=== PATIENT | female | born 1985 | race African-American/Black ===

== ENCOUNTER 2019-07-20 02:08 | Emergency (ER) | payer SELFPAY ==
--- NOTE | 2019-07-20 03:07 | ER ---
Nurse's Notes [facility] Name: Laly Gray Age: 34 yrs Sex: Female : 1985 Arrival Date: 07/20/2019 Time: 02:12 Bed 20 Private MD: Diagnosis: Acute pharyngitis;Acute laryngitis;Cough Presentation: 07/19 02:30 Chief complaint: Patient states: my throat is hurting, cough and on and off fever rr5 started 3 days ago. I took ibuprofen and throat spray but it did not help. Coronavirus screen: The patient has NOT traveled to a country currently being monitored by the [facility] within the last 14 days. Proceed with normal triage procedures. Ebola Screen: Patient negative for fever greater than or equal to 101.5 degrees Fahrenheit, and additional compatible Ebola Virus Disease symptoms Patient denies exposure to infectious person. Patient denies travel to an Ebola-affected area in the 21 days before illness onset. Initial Sepsis Screen: Does the patient meet any 2 criteria? HR > 90 bpm. No. Patient's initial sepsis screen is negative. Does the patient have a suspected source of infection? Yes: Productive cough/pneumonia. Risk Assessment: Do you want to hurt yourself or someone else? Patient reports no desire to harm self or others. Onset of symptoms was July 16, 2019. 02:30 Method Of Arrival: Ambulatory rr5 02:30 Acuity: LY 3 rr5 Triage Assessment: 02:35 General: Appears in no apparent distress. uncomfortable, Behavior is calm, cooperative, rr5 appropriate for age. 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 - Social history:: Smoking status: Patient reports the use of cigarette tobacco products, 5 sticks per day, Patient/guardian denies using alcohol, street drugs. - Family history:: not pertinent. Screenin:35 Abuse screen: Denies threats or abuse. Denies injuries from another. Nutritional rr5 screening: No deficits noted. Tuberculosis screening: No symptoms or risk factors identified. Fall Risk None identified. Total Scott Fall Scale indicates No Risk (0-24 pts). Assessment: 02:35 General: Appears in no apparent distress. uncomfortable, Behavior is calm, cooperative, rr5 appropriate for age, Reports fever for 2-3 days. 02:35 Pain: Complains of pain in throat Pain radiates to neck Pain currently is 8 out of 10 rr5 on a pain scale. Quality of pain is described as aching, Pain began gradually, Is intermittent. Neuro: Level of Consciousness is awake, alert, obeys commands, Oriented to person, place, time, situation. Cardiovascular: Capillary refill < 3 seconds Patient's skin is warm and dry. Respiratory: Reports cough that is Airway is patent Respiratory effort is even, unlabored, Respiratory pattern is regular, symmetrical, Breath sounds are clear bilaterally. GI: No signs and/or symptoms were reported involving the gastrointestinal system. : No signs and/or symptoms were reported regarding the genitourinary system. EENT: Throat with gag reflex present, mild redness and mild swelling. hoarseness noted.. Derm: Skin is intact, is healthy with good turgor, Skin temperature is warm. Musculoskeletal: Circulation, motion, and sensation intact. Capillary refill < 3 seconds. 03:20 Reassessment: Patient appears in no apparent distress at this time. Patient is alert, rr5 oriented x 3, equal unlabored respirations, skin warm/dry/pink. discharge instruction given and explained without complaints made. Vital Signs: 02:30 BP 155 / 75; Pulse 118; Resp 20; Temp 98.9; Pulse Ox 99% ; Weight 99.79 kg; Height 5 rr5 ft. 2 in. (157.48 cm); Pain 9/10; 03:20 BP 151 / 70; Pulse 105; Resp 19; Temp 98.5; Pulse Ox 99% on R/A; rr5 02:30 Body Mass Index 40.24 (99.79 kg, 157.48 cm) rr5 ED Course: 02:12 Patient arrived in ED. es 02:21 Yohannes Cloud, TABITHA is Primary Nurse. rr5 02:25 Clarence Ni MD is Attending Physician. festus 02:34 Triage completed. rr5 02:34 Arm band placed on right wrist. rr5 02:35 Patient has correct armband on for positive identification. Bed in low position. Call rr5 light in reach. 03:20 No provider procedures requiring assistance completed. Patient did not have IV access rr5 during this emergency room visit. Administered Medications: 03:05 Drug: Augmentin 875 mg Route: PO; rr5 03:25 Follow up: Response: Medication administered at discharge. rr5 03:08 Drug: predniSONE 40 mg Route: PO; rr5 03:25 Follow up: Response: Medication administered at discharge. rr5 Outcome: 03:06 Discharge ordered by . festus 03:25 Discharged to home ambulatory. rr5 03:25 Condition: stable 03:25 Discharge instructions given to patient, Instructed on discharge instructions, follow up and referral plans. medication usage, Demonstrated understanding of instructions, follow-up care, medications, Prescriptions given X 3. 03:28 Patient left the ED. rr5 Signatures: Clarence Ni MD MD cha Salyer, Yohannes Sharma, RN RN rr5
--- NOTE | 2019-07-20 03:07 | EDPHYS ---
Physician Documentation [facility] Name: Laly Gray Age: 34 yrs Sex: Female : 1985 Arrival Date: 07/20/2019 Time: 02:12 Bed 20 Private MD: ROSIE Physician Clarence Ni HPI: 07/19 03:00 This 34 yrs old Black Female presents to ER via Ambulatory with complaints of Sore festus Throat, Fever, Cough. 03:00 The patient presents with sore throat. The patient describes throat pain as burning. festus Onset: The symptoms/episode began/occurred 2 day(s) ago. Severity of symptoms: At their worst the symptoms were mild. Modifying factors: The symptoms are alleviated by. Associated signs and symptoms: The patient has no apparent associated signs or symptoms. The patient has not experienced similar symptoms in the past. 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 - Social history:: Smoking status: Patient reports the use of cigarette tobacco products, 5 sticks per day, Patient/guardian denies using alcohol, street drugs. - Family history:: not pertinent. ROS: 03:00 Constitutional: Negative for fever, chills, and weight loss, Eyes: Negative for injury, festus pain, redness, and discharge, Neck: Negative for injury, pain, and swelling, Cardiovascular: Negative for chest pain, palpitations, and edema, Respiratory: Negative for shortness of breath, cough, wheezing, and pleuritic chest pain, Abdomen/GI: Negative for abdominal pain, nausea, vomiting, diarrhea, and constipation, Back: Negative for injury and pain, : Negative for injury, bleeding, discharge, and swelling, MS/Extremity: Negative for injury and deformity, Skin: Negative for injury, rash, and discoloration, Neuro: Negative for headache, weakness, numbness, tingling, and seizure. 03:00 ENT: Positive for difficulty swallowing, hoarseness. Exam: 03:00 Constitutional: This is a well developed, well nourished patient who is awake, alert, festus and in no acute distress. Head/Face: Normocephalic, atraumatic. Eyes: Pupils equal round and reactive to light, extra-ocular motions intact. Lids and lashes normal. Conjunctiva and sclera are non-icteric and not injected. Cornea within normal limits. Periorbital areas with no swelling, redness, or edema. Neck: Trachea midline, no thyromegaly or masses palpated, and no cervical lymphadenopathy. Supple, full range of motion without nuchal rigidity, or vertebral point tenderness. No Meningismus. Chest/axilla: Normal chest wall appearance and motion. Nontender with no deformity. No lesions are appreciated. Cardiovascular: Regular rate and rhythm with a normal S1 and S2. No gallops, murmurs, or rubs. Normal PMI, no JVD. No pulse deficits. Respiratory: Lungs have equal breath sounds bilaterally, clear to auscultation and percussion. No rales, rhonchi or wheezes noted. No increased work of breathing, no retractions or nasal flaring. Abdomen/GI: Soft, non-tender, with normal bowel sounds. No distension or tympany. No guarding or rebound. No evidence of tenderness throughout. Back: No spinal tenderness. No costovertebral tenderness. Full range of motion. Skin: Warm, dry with normal turgor. Normal color with no rashes, no lesions, and no evidence of cellulitis. MS/ Extremity: Pulses equal, no cyanosis. Neurovascular intact. Full, normal range of motion. Neuro: Awake and alert, GCS 15, oriented to person, place, time, and situation. Cranial nerves II-XII grossly intact. Motor strength 5/5 in all extremities. Sensory grossly intact. Cerebellar exam normal. Normal gait. Psych: Awake, alert, with orientation to person, place and time. Behavior, mood, and affect are within normal limits. 03:00 ENT: Posterior pharynx: Airway: normal, no evidence of obstruction, Tonsils: are normal in appearance, Uvula: normal, midline, non-edematous, no erythema, swelling, that is mild, erythema, that is mild, exudate, is not appreciated, peritonsillar mass, is not appreciated. 03:05 Musculoskeletal/extremity: DVT Exam: No signs of deep vein thrombosis. no pain, no festus swelling, no tenderness, negative Homans' sign noted on exam, no appreciated bluish discoloration, no erythema, no increased warmth. Vital Signs: 02:30 BP 155 / 75; Pulse 118; Resp 20; Temp 98.9; Pulse Ox 99% ; Weight 99.79 kg; Height 5 rr5 ft. 2 in. (157.48 cm); Pain 9/10; 03:20 BP 151 / 70; Pulse 105; Resp 19; Temp 98.5; Pulse Ox 99% on R/A; rr5 02:30 Body Mass Index 40.24 (99.79 kg, 157.48 cm) rr5 MDM: 02:26 Patient medically screened. [facility] 03:05 Data reviewed: vital signs, nurses notes. [facility] Administered Medications: 03:05 Drug: Augmentin 875 mg Route: PO; rr5 03:25 Follow up: Response: Medication administered at discharge. rr5 03:08 Drug: predniSONE 40 mg Route: PO; rr5 03:25 Follow up: Response: Medication administered at discharge. rr5 Disposition: 07/20/19 03:06 Discharged to Home. Impression: Acute pharyngitis, Acute laryngitis, Cough. - Condition is Stable. - Discharge Instructions: Laryngitis, Pharyngitis, Upper Respiratory Infection, Adult, Cool Mist Vaporizer, Pharyngitis, [id number], Cough, Adult, Axsb-pc-Jgic, Cough, Adult, Sore Throat, Ioxw-al-Seor. - Prescriptions for Augmentin 875- 125 mg Oral Tablet - take 1 tablet by ORAL route every 12 hours for 10 days; 20 tablet. Tammie- D 12 Hour 60-120 mg Oral Tablet Sustained Release 12 hr - take 1 tablet by ORAL route every 12 hours As needed; 20 tablet. Medrol (Ryan) 4 mg Oral Tablets, Dose Pack - take 1 tablet by ORAL route as directed - follow package instructions; 1 packet. - Work release form, Medication Reconciliation Form, Thank You Letter, Antibiotic Education, Prescription Opioid Use form. - Follow up: Private Physician; When: 2 - 3 days; Reason: Recheck today's complaints, Continuance of care, Re-evaluation by your physician. - Problem is new. - Symptoms have improved. Signatures: Clarence Ni MD MD cha Roque, Raymond RN RN rr5 Corrections: (The following items were deleted from the chart) 03:28 03:06 07/20/2019 03:06 Discharged to Home. Impression: Acute pharyngitis; Acute rr5 laryngitis; Cough. Condition is Stable. Forms are Medication Reconciliation Form, Thank You Letter, Antibiotic Education, Prescription Opioid Use. Follow up: Private Physician; When: 2 - 3 days; Reason: Recheck today's complaints, Continuance of care, Re-evaluation by your physician. Problem is new. Symptoms have improved. festus
[2019-07-20] MEDS ORDERED: predniSONE 20 MG TAB ONE (03:19)
[2019-07-20] MEDS ORDERED: AMOX/K CLAV 875 MG TAB ONE (03:20)
[2019-07-20 03:33] VITALS: BP 155/75; TEMP 98.9; O2SAT 99
== END 2019-07-20 03:28 | disposition home or self-care (01) ==
LOC: ER 02:08
DX: J02.9 Acute pharyngitis, unspecified (principal); J04.0 Acute laryngitis; R05 Cough; F17.210 Nicotine dependence, cigarettes, uncomplicated
CPT/HCPCS: 99283; J7512

== ENCOUNTER 2020-03-28 12:44 | Emergency (ER) | payer SELFPAY ==
--- OUTSIDE RECORDS SUMMARY | 2020-03-28 12:47 | XMS REPORT | Continuity of Care Document ---
:1985 Author Organization [facility] t Address [address] [place] [address] Care Team Providers Name Role Phone Lazarus Hayward NP Attending Clinician Doctor Unassigned, Name Attending Clinician Unavailable Angella SHAFER S Attending Clinician Problems This patient has no known problems. Allergies, Adverse Reactions, Alerts This patient has no known allergies or adverse reactions. Medications This patient has no known medications. Procedures This patient has no known procedures. Encounters Start End Encounter Admission Attending Care Care Encounter Source Date/Time Date/Time Type Type Clinicians Facility Department ID 2019-07-11 2019-07-11 [email or web address] [id number] 17:09:23 20:25:00 Jeana Reinoso [id number] [place] [id number] [place] [id number] 2019-07-11 2019-07-11 Orders Doctor LEAL [id number] 00:00:00 00:00:00 Only Unassigned, RYAN [id number] [place] [facility] [id number] 2018-12-05 2018-12-05 [facility] [id number] 19:29:22 21:59:00 Tramaine Reinoso [id number] [place] [id number] [place] [id number] Results This patient has no known results.
[2020-03-28 13:36] LABS: Absolute Lymphocytes (CBC) 2.1 K/uL (0.7-4.9); Basophils % 1.4 % (0-1.3); Hematocrit 32.5 % (36.0-45.0); Lymphocytes % 25.4 % (15.3-44.8); MPV 7.8 fL (7.6-11.3); RBC Red Blood Cell Count 4.57 M/uL (3.86-4.86)
[2020-03-28 13:49] LABS: Potassium 3.3 mmol/L (3.5-5.1)
[2020-03-28] MEDS ORDERED: PROMETHAZINE INJ 25 MG/ML AMP ONE (13:51)
[2020-03-28] MEDS ORDERED: DIPHENHYDRAMINE 50 MG/ML VIAL ONE (13:51)
[2020-03-28] MEDS ORDERED: NA CHLORIDE 0.9% 2,000 ML ONE (13:51)
[2020-03-28 13:58] LABS: Urine Bacteria <20 /HPF (<20); Urine Mucus HEAVY /HPF (NONE SEEN); Urine RBC NONE SEEN /HPF (NONE SEEN)
--- NOTE | 2020-03-28 15:46 | EDPHYS ---
Physician Documentation [facility] Name: Laly Gray Age: 35 yrs Sex: Female : 1985 Arrival Date: 03/28/2020 Time: 12:48 Bed 8 Private MD: ED Physician Jose Xie HPI: 03/28 13:31 This 35 yrs old Black Female presents to ER via Ambulatory with complaints of Vomiting, snw Dizziness. 13:31 The patient presents to the emergency department with nausea, that is moderate, that is snw severe, vomiting, 2 times since the onset of symptoms. Onset: The symptoms/episode began/occurred suddenly, 4 day(s) ago, and became persistent. Possible causes: unknown. The symptoms are aggravated by nothing. Severity of symptoms: At their worst the symptoms were moderate severe in the emergency department the symptoms are unchanged. The patient has not experienced similar symptoms in the past. The patient has not recently seen a physician. hx of HTN, takes Lisinopril, has had migraines in the past but not recently. 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 - Social history:: Smoking status: Patient reports the use of cigarette tobacco products, smokes one-half pack cigarettes per day. ROS: 13:31 Constitutional: Negative for fever, chills, and weight loss, Eyes: Negative for injury, snw pain, redness, and discharge, ENT: Negative for injury, pain, and discharge, Neck: Negative for injury, pain, and swelling, Cardiovascular: Negative for chest pain, palpitations, and edema, Respiratory: Negative for shortness of breath, cough, wheezing, and pleuritic chest pain, Back: Negative for injury and pain, : Negative for injury, bleeding, discharge, and swelling, MS/Extremity: Negative for injury and deformity, Skin: Negative for injury, rash, and discoloration. 13:31 Abdomen/GI: Positive for nausea and vomiting, Negative for abdominal pain, diarrhea. 13:31 Neuro: Positive for dizziness. Exam: 13:33 Constitutional: This is a well developed, well nourished patient who is awake, alert, snw and in no acute distress. Head/Face: Normocephalic, atraumatic. Eyes: Pupils equal round and reactive to light, extra-ocular motions intact. Lids and lashes normal. Conjunctiva and sclera are non-icteric and not injected. Cornea within normal limits. Periorbital areas with no swelling, redness, or edema. ENT: Nares patent. No nasal discharge, no septal abnormalities noted. Tympanic membranes are normal and external auditory canals are clear. Oropharynx with no redness, swelling, or masses, exudates, or evidence of obstruction, uvula midline. Mucous membranes moist. Neck: Trachea midline, no thyromegaly or masses palpated, and no cervical lymphadenopathy. Supple, full range of motion without nuchal rigidity, or vertebral point tenderness. No Meningismus. Chest/axilla: Normal chest wall appearance and motion. Nontender with no deformity. No lesions are appreciated. Cardiovascular: Regular rate and rhythm with a normal S1 and S2. No gallops, murmurs, or rubs. Normal PMI, no JVD. No pulse deficits. Respiratory: Lungs have equal breath sounds bilaterally, clear to auscultation and percussion. No rales, rhonchi or wheezes noted. No increased work of breathing, no retractions or nasal flaring. Abdomen/GI: Soft, non-tender, with normal bowel sounds. No distension or tympany. No guarding or rebound. No evidence of tenderness throughout. Back: No spinal tenderness. No costovertebral tenderness. Full range of motion. Skin: Warm, dry with normal turgor. Normal color with no rashes, no lesions, and no evidence of cellulitis. MS/ Extremity: Pulses equal, no cyanosis. Neurovascular intact. Full, normal range of motion. Neuro: Awake and alert, GCS 15, oriented to person, place, time, and situation. Cranial nerves II-XII grossly intact. Motor strength 5/5 in all extremities. Sensory grossly intact. Cerebellar exam normal. Normal gait. Psych: Awake, alert, with orientation to person, place and time. Behavior, mood, and affect are within normal limits. Vital Signs: 13:07 BP 96 / 67; Pulse 95; Resp 16 S; Temp 97.6(TE); Pulse Ox 99% on R/A; Weight 104.33 kg ca1 (R); Height 5 ft. 3 in. (160.02 cm) (R); Pain 6/10; 13:30 BP 122 / 76; Pulse 97; Resp 17; Pulse Ox 100% ; jl7 15:30 BP 111 / 73; Pulse 87; Resp 17; Pulse Ox 100% ; jl7 13:07 Body Mass Index 40.74 (104.33 kg, 160.02 cm) ca1 MDM: 13:27 Patient medically screened. snw 13:33 Data reviewed: vital signs, nurses notes. Data interpreted: Pulse oximetry: on room air snw is 99 %. Counseling: I had a detailed discussion with the patient and/or guardian regarding: the historical points, exam findings, and any diagnostic results supporting the discharge/admit diagnosis. 03/28 13:15 Order name: Basic Metabolic Panel; Complete Time: 15:04 snw 03/28 13:15 Order name: CBC with Diff; Complete Time: 13:38 snw 03/28 13:15 Order name: Urine Culture snw 03/28 13:15 Order name: Urine Microscopic Only; Complete Time: 15:04 snw 03/28 13:48 Order name: Urine Dipstick--Ancillary (enter results) eb 03/28 13:48 Order name: Urine --Ancillary (enter results) eb 03/28 13:15 Order name: IV Saline Lock; Complete Time: 13:31 snw 03/28 13:15 Order name: Labs collected and sent; Complete Time: 13:31 snw 03/28 13:15 Order name: Urine Test (obtain specimen); Complete Time: 13:46 snw 03/28 13:15 Order name: Urine Dipstick-Ancillary (obtain specimen); Complete Time: 13:47 snw Administered Medications: 13:45 Drug: NS 0.9% 1000 ml Route: IV; Rate: 1 bolus; Site: right antecubital; jl7 15:30 Follow up: Response: No adverse reaction; IV Status: Completed infusion; IV Intake: jl7 1000ml 13:45 Drug: Phenergan 25 mg Route: IVP; Site: right antecubital; jl7 15:03 Follow up: Response: No adverse reaction; Marked relief of symptoms jl7 13:45 Drug: NS 0.9% 1000 ml Route: IV; Rate: 125 ml/hr; Site: right antecubital; jl7 15:30 Follow up: Response: No adverse reaction; IV Status: Completed infusion; IV Intake: jl7 250ml 13:50 Drug: Benadryl 12.5 mg Route: IVP; Site: right antecubital; jl7 15:03 Follow up: Response: No adverse reaction; Marked relief of symptoms jl7 Disposition: 16:52 Co-signature as Attending Physician, Jose Xie MD. rn Disposition: 03/28/20 15:45 Discharged to Home. Impression: Headache, Volume depletion, Dizziness and giddiness. - Condition is Stable. - Discharge Instructions: Allergies, Adult, Dehydration, Adult, Migraine Headache, Nausea and Vomiting, Adult, Rehydration, Adult. - Prescriptions for orphenadrine citrate 100 mg Oral Tablet Sustained Release - take 1 tablet by ORAL route 2 times per day As needed; 20 tablet. promethazine 25 mg Oral Tablet - take 1 tablet by ORAL route every 6 hours As needed; 20 tablet. - Work release form, Medication Reconciliation Form, Thank You Letter, Antibiotic Education, Prescription Opioid Use form. - Follow up: Emergency Department; When: As needed; Reason: Worsening of condition. Follow up: Private Physician; When: 2 - 3 days; Reason: Recheck today's complaints, Continuance of care, Re-evaluation by your physician. Signatures: Dispatcher [employer] [facility] Elisabeth Barker, GURU-C DATA INTEGRITY CONSULTANT-Cs[employer] Jose Xie MD MD rn Leal, Jahala, RN RN jl7 Ryann Hoang RN RN ca1 Corrections: (The following items were deleted from the chart) 16:03 15:45 03/28/2020 15:45 Discharged to Home. Impression: Headache; Volume depletion; jl7 Dizziness and giddiness. Condition is Stable. Forms are Medication Reconciliation Form, Thank You Letter, Antibiotic Education, Prescription Opioid Use. Follow up: Emergency Department; When: As needed; Reason: Worsening of condition. Follow up: Private Physician; When: 2 - 3 days; Reason: Recheck today's complaints, Continuance of care, Re-evaluation by your physician. snw
--- NOTE | 2020-03-28 15:46 | ER ---
Nurse's Notes [facility] Name: Laly Gray Age: 35 yrs Sex: Female : 1985 Arrival Date: 03/28/2020 Time: 12:48 Bed 8 Private MD: Diagnosis: Headache;Volume depletion;Dizziness and giddiness Presentation: 03/28 13:07 Chief complaint: Patient states: 3rd day of extreme headache, extreme nausea, dizzy and ca1 lightheaded. Denies fever, cough and congestion. Coronavirus screen: Client denies travel out of the [place] in the last 14 days. headache, nausea, Client presents with at least one sign or symptom that may indicate coronavirus-19. Standard/surgical mask placed on the client. Provider contacted for isolation considerations. The client denies any previous COVID testing. Ebola Screen: Patient negative for fever greater than or equal to 101.5 degrees Fahrenheit, and additional compatible Ebola Virus Disease symptoms Patient denies exposure to infectious person. Patient denies travel to an Ebola-affected area in the 21 days before illness onset. No symptoms or risks identified at this time. Initial Sepsis Screen: Does the patient meet any 2 criteria? No. Patient's initial sepsis screen is negative. Does the patient have a suspected source of infection? No. Patient's initial sepsis screen is negative. Risk Assessment: Do you want to hurt yourself or someone else? Patient reports no desire to harm self or others. Onset of symptoms was March 28, 2020. 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 - Social history:: Smoking status: Patient reports the use of cigarette tobacco products, smokes one-half pack cigarettes per day. Screenin:06 Abuse screen: Denies threats or abuse. Denies injuries from another. Nutritional jl7 screening: No deficits noted. Tuberculosis screening: No symptoms or risk factors identified. Fall Risk IV access (20 points). Total Scott Fall Scale indicates No Risk (0-24 pts). Assessment: 13:30 General: Appears in no apparent distress. uncomfortable, Behavior is calm, cooperative, jl7 appropriate for age. Pain: Complains of pain in HERNANDEZ Pain currently is 6 out of 10 on a pain scale. Neuro: Level of Consciousness is awake, alert, obeys commands, Oriented to person, place, time, situation. Cardiovascular: Patient's skin is warm and dry. Respiratory: Airway is patent Respiratory effort is even, unlabored, Respiratory pattern is regular, symmetrical. GI: Abdomen is non-distended, Reports nausea, Patient currently denies diarrhea. : No signs and/or symptoms were reported regarding the genitourinary system. Derm: Skin is pink, warm \T\ dry. 15:30 Reassessment: Patient appears in no apparent distress at this time. Patient and/or jl7 family updated on plan of care and expected duration. Pain level reassessed. Patient is alert, oriented x 3, equal unlabored respirations, skin warm/dry/pink. Patient states feeling better. Patient states symptoms have improved. Vital Signs: 13:07 BP 96 / 67; Pulse 95; Resp 16 S; Temp 97.6(TE); Pulse Ox 99% on R/A; Weight 104.33 kg ca1 (R); Height 5 ft. 3 in. (160.02 cm) (R); Pain 6/10; 13:30 BP 122 / 76; Pulse 97; Resp 17; Pulse Ox 100% ; jl7 15:30 BP 111 / 73; Pulse 87; Resp 17; Pulse Ox 100% ; jl7 13:07 Body Mass Index 40.74 (104.33 kg, 160.02 cm) ca1 ED Course: 12:48 Patient arrived in ED. mr 13:08 Triage completed. ca1 13:10 Arm band placed on right wrist. ca1 13:13 Elisabeth Barker FNP-C is PHCP. snw 13:13 Jose Xie MD is Attending Physician. snw 13:14 Melania Harman RN is Primary Nurse. jl7 13:30 Initial lab(s) drawn, by me, sent to lab. Urine collected: clean catch specimen, clear. jl7 Inserted saline lock: 20 gauge in right antecubital area, using aseptic technique. Blood collected. 15:06 Patient has correct armband on for positive identification. Bed in low position. Call jl7 light in reach. Side rails up X 1. Pulse ox on. NIBP on. 16:03 No provider procedures requiring assistance completed. IV discontinued, intact, jl7 bleeding controlled, No redness/swelling at site. Pressure dressing applied. Administered Medications: 13:45 Drug: NS 0.9% 1000 ml Route: IV; Rate: 1 bolus; Site: right antecubital; jl7 15:30 Follow up: Response: No adverse reaction; IV Status: Completed infusion; IV Intake: jl7 1000ml 13:45 Drug: Phenergan 25 mg Route: IVP; Site: right antecubital; jl7 15:03 Follow up: Response: No adverse reaction; Marked relief of symptoms jl7 13:45 Drug: NS 0.9% 1000 ml Route: IV; Rate: 125 ml/hr; Site: right antecubital; jl7 15:30 Follow up: Response: No adverse reaction; IV Status: Completed infusion; IV Intake: jl7 250ml 13:50 Drug: Benadryl 12.5 mg Route: IVP; Site: right antecubital; jl7 15:03 Follow up: Response: No adverse reaction; Marked relief of symptoms jl7 Intake: 15:30 IV: 1000ml; Total: 1000ml. jl7 15:30 IV: 250ml; Total: 1250ml. jl7 Outcome: 15:45 Discharge ordered by MD. murray 16:03 Discharged to home via wheelchair, with significant other. jl7 16:03 Condition: stable 16:03 Discharge instructions given to patient, significant other, Instructed on discharge instructions, follow up and referral plans. medication usage, Demonstrated understanding of instructions, follow-up care, medications, Prescriptions given X 2. 16:03 Patient left the ED. jl7 Signatures: Elisabeth Barker, NEETU PATELP-Alexsander MontesMervat mr HarmanMelania RN RN jl7 Ryann Hoang RN RN ca1 Corrections: (The following items were deleted from the chart) 16:01 15:03 Response: No adverse reaction; IV Status: Completed infusion; IV Intake: 1000ml jl7 jl7
[2020-03-28 16:17] LABS: Urine Blood NEGATIVE (NEG); Urine Glucose NEGATIVE (NEG); Urine Protein 1+ (NEG); Urine Specific Gravity 1.025 (1.005-1.030)
[2020-03-28 19:42] VITALS: TEMP 97.6
[2020-03-28 19:44] VITALS: O2SAT 100
[2020-03-28 19:46] VITALS: BP 111/73
== END 2020-03-28 16:03 | disposition home or self-care (01) ==
LOC: ER 12:44
DX: E86.9 Volume depletion, unspecified (principal); R51.9 Headache, unspecified; I10 Essential (primary) hypertension; E11.9 Type 2 diabetes mellitus without complications; F17.210 Nicotine dependence, cigarettes, uncomplicated
CPT/HCPCS: 36415; 80048; 81003; 81015; 81025; 85025; 87086; 87088; 96361; 96374; 96375; 99284; J1200; J2550; J7030

== ENCOUNTER 2021-04-26 16:18 | Emergency (ER) | payer SELFPAY ==
--- OUTSIDE RECORDS SUMMARY | 2021-04-26 16:21 | XMS REPORT | Continuity of Care Document ---
:1985 Author Organization [facility] t Address [address] [place] [address] Care Team Providers Name Role Phone PCP, DOES NOT HAVE A Primary Care Physician Unavailable Akira Quintana DO Attending Clinician Vero MEI, S Attending Clinician Tania LU, M Attending Clinician Unavailable Yesy ANDRADE, G Attending Clinician Lazarus AVENDAÑO Attending Clinician Unavailable Doctor Unassigned, Name Attending Clinician Unavailable Dayan GOLD Attending Clinician Unavailable Angella SHAFER S Attending Clinician Lazarus AVENDAÑO Admitting Clinician Unavailable Payers Payer Name Policy Type Policy Number Effective Date Expiration Date S ource Problems Condition Condition Condition Status Onset Resolution Last Treating Co mments Source Name Details Category Date Date Treatment Clinician Date Obesity Obesity Disease Active 2015-05 Univers (BMI (BMI 1-27 ity of 30-39.9) 30-39.9) 00:00: [address] Lower Lower Disease Active Univers abdominal abdominal 3-13 ity of pain pain 00:00: [address] Contracept Contracept Disease Active U nivers [place] 2-16 [place]y [place] management [place] Excessive Excessive Disease Active Uni vers or or 2-16 ity of frequent frequent 00:00: [place] menstruati menstruati 00 Me dical on on Branch Contracept Contracept Disease Active U yordan [place] 2-16 ity of management management [place] Well woman Well woman Disease Active Overview : Univers exam exam 1-19 ICD10 ity of 00:00: Diagnosis [place] 00 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 History of History of Disease Active U yordan tubal tubal -19 ity of ligation ligation 00:00: [place] 00 Medical Branch Screening Screening Disease Active Overview: Univers for STD for STD - ICD10 ity of (sexually (sexually 00:00: Diagnosis [place] transmitte transmitte 00 Term Me dical d disease) d disease) 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 Asthma Asthma Disease Active Overview: Univer s 1-19 ICD10 ity of 00:00: Diagnosis [place] 00 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 Morbid Morbid Disease Active Univers obesity obesity -19 ity of 00:00: [place] 00 [facility] Branch Tobacco Tobacco Disease Active 2012-05 Univers use use 1-22 ity of disorder disorder 00:00: [place] 00 [facility] Type 2 Type 2 Disease Active 2012-05 Overview: [facility] s diabetes diabetes 1-21 ICD10 ity of mellitus mellitus 00:00: Diagnosis [place] without without 00 Term Medical complicati complicati Lobbyist Branch ons ons Utility Allergies, Adverse Reactions, Alerts Allergy Allergy Status Severity Reaction(s) Onset Inactive Treating Comm ents Source Name Type Date Date Clinician NO KNOWN Drug Active Univers ALLERGIE Class ity of S [facility] Social History Social Habit Start Date Stop Date Quantity Comments Source History of Cigarette Smoker Universi ty of tobacco use [facility] Exposure to Not sure University of SARS-CoV-2 [place] [facility] (event) Branch Alcohol intake 2020-04-09 2020-04-09 Current University of 00:00:00 00:00:00 non-drinker of [facility] alcohol (finding) Branch Tobacco use and 2020-04-09 2020-04-09 Never used Universit y of exposure 00:00:00 00:00:00 [facility] Tobacco Comment 2014-05-16 2014-05-16 smokes 5 Universit y of 00:00:00 00:00:00 cigarettes a day [facility] Sex Assigned At [birth year] Universit y of 00:00:00 00:00:00 [facility] Smoking Status Start Date Stop Date Source Current every day smoker 2020-04-09 00:00:00 Uni versity of [facility] Medications Ordered Filled Start Stop Current Ordering Indication Dosage Frequency Signature Comments Components Source Medication Medication Date Date Medication? Clinician (SIG) Name Name ondansetron 2019-05- No 4mg 4 mg, Univ ers (ZOFRAN-ODT 2-10 12-10 Oral, ity of ) 08:45: 07:40 ONCE, 1 [place] disintegrat 00 :00 dose, Michelle Med ical ing tablet 04/09/20 Branc h 4 mg at 0245, Routine ondansetron 2019-05 Yes [id number] 4mg Take 1 Univers (ZOFRAN 2-10 tablet by ity of ODT) 4 mg 00:00: mouth [place] disintegrat 00 every 8 Medic al ing tablet (eight) Branch hours as needed for Nausea and Vomiting (N/V). ondansetron 2019-05 Yes [id number] 4mg Take 1 Univers (ZOFRAN 2-10 tablet by ity of ODT) 4 mg 00:00: mouth [place] disintegrat 00 every 8 Medic al ing tablet (eight) Branch hours as needed for Nausea and Vomiting (N/V). ondansetron 2019-05 Yes [id number] 4mg Take 1 Univers (ZOFRAN 2-10 tablet by ity of ODT) 4 mg 00:00: mouth [place] disintegrat 00 every 8 Medic al ing tablet (eight) Branch hours as needed for Nausea and Vomiting (N/V). dexamethaso 2020- No [id number] 10mg 10 mg, Univers ne 07-10 Intramuscu ity of (DECADRON 23:45: 00:09 lar, ONCE, [place] PHOSPHATE) 00 :00 1 dose, Medica l injection Michelle Branch 10 mg 07/11/19 at 1845, Routine ipratropium 2020- No [id number] 3mL 3 mL, Univers -albuterol 07-10 Inhalation it y of (DUONEB) 23:45: 22:39 , ONCE, 1 [place] 0.5 mg-3 00 :00 dose, Michelle Medica l mg(2.5 mg 07/11/19 at Bran ch base)/3 mL 1845, nebulizer Routine solution 3 mL albuterol Yes [id number] 2{puff} Inhale 2 Univers 90 3-12 Puffs ity of mcg/actuati 00:00: every 4 [place] on inhaler 00 (four) Medical hours as Branch needed for Wheezing or Shortness of Breath. albuterol Yes [id number] 2{puff} Inhale 2 Univers 90 3-12 Puffs ity of mcg/actuati 00:00: every 4 [place] on inhaler 00 (four) Medical hours as Branch needed for Wheezing or Shortness of Breath. albuterol Yes [id number] 2{puff} Inhale 2 Univers 90 3-12 Puffs ity of mcg/actuati 00:00: every 4 [place] as on inhaler 00 (four) Medical hours as Branch needed for Wheezing or Shortness of Breath. albuterol Yes [id number] 2{puff} Inhale 2 Univers 90 3-12 Puffs ity of mcg/actuati 00:00: every 4 [place] on inhaler 00 (four) Medical hours as Branch needed for Wheezing or Shortness of Breath. predniSONE 2020- No [id number] 40mg Take 2 Univers 20 mg 07-10-18 tablets by ity of tablet 00:00: 04:59 mouth [place] 00 :00 every Medical morning Branch for 5 days. benzonatate 2020- No [id number] 200mg Take 2 Univers 100 mg 07-10-18 capsules ity of capsule 00:00: 04:59 by mouth 3 [place] 00 :00 (three) Medical times Branch daily as needed for Cough for up to 5 days. phenylephri 2020- No [id number] 5mL Take 5 mL Univers ne-prometha 07-1012 by mouth 4 i ty of zine-codein 00:00: 00:00 (four) [place] e 00 :00 times Medical (PROMETHAZI daily as Bran ch NE needed for VC-CODEINE) Cough. 6.25-5-10 mg/5 mL syrup NaCl 0.9% Yes 1000mL at 999 Univ ers (NS) IV 8-08 mL/hr, ity of infusion 01:45: Intravenou [place] 1,000 mL 00 s, Medical CONTINUOUS Branch , Starting 12/05/18 at 2044, Until Discontinu ed, Routine ondansetron 2019- No 4mg 4 mg, Slow Univers (ZOFRAN 12-06 IV Push, ity of (PF)) 01:45: 01:00 ONCE, 1 [place] injection 4 00 :00 dose, Mon Med ical mg 12/05/18 at Branch 2044, CRISTOBAL ketorolac 2019- No 30mg 30 mg, Unive rs (TORADOL) 12-06 Slow IV ity of injection 01:45: 01:00 Push, [place] 30 mg 00 :00 ONCE, 1 Medical dose, Wed Branch 12/05/18 at 2044, Routine
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 Medical Branch metFORMIN Yes [id number] 500mg Take 1 Univers 500 mg 8-07 tablet by ity of tablet 00:00: mouth 2 [place] 00 (two) Medical times Branch daily. lisinopril 2018- Yes [id number] 20mg Take 1 Univers 20 mg 8-07 tablet by ity of tablet 00:00: mouth [place] 00 daily. Medical Branch metFORMIN Yes [id number] 500mg Take 1 Univers 500 mg 8-07 tablet by ity of tablet 00:00: mouth 2 [place] 00 (two) Medical times Branch daily. lisinopril 2018- Yes [id number] 20mg Take 1 Univers 20 mg 8-07 tablet by ity of tablet 00:00: mouth [place] 00 daily. Medical Branch metFORMIN Yes [id number] 500mg Take 1 Univers 500 mg 8-07 tablet by ity of tablet 00:00: mouth 2 [place] 00 (two) Medical times Branch daily. ondansetron 2018- Yes [id number] 8mg Take 1 Univers 8 mg tablet 8-07 tablet by ity of 00:00: mouth [place] 00 every 8 Medical (eight) Branch hours as needed for Nausea and Vomiting (N/V). lisinopril 2018- Yes [id number] 20mg Take 1 Univers 20 mg 8-07 tablet by ity of tablet 00:00: mouth [place] 00 daily. Medical Branch metFORMIN 2018- Yes [id number] 500mg Take 1 Univers 500 mg 8-07 tablet by ity of tablet 00:00: mouth 2 [place] 00 (two) Medical times Branch daily. lisinopril 2018- Yes [id number] 20mg Take 1 Univers 20 mg 8-07 tablet by ity of tablet 00:00: mouth [place] 00 daily. Medical Branch metFORMIN Yes [id number] 500mg Take 1 Univers 500 mg 8-07 tablet by ity of tablet 00:00: mouth 2 [place] 00 (two) Medical times Branch daily. lisinopril 2018- Yes [id number] 20mg Take 1 Univers 20 mg 8-07 tablet by ity of tablet 00:00: mouth [place] 00 daily. Medical Branch metFORMIN Yes [id number] 500mg Take 1 Univers 500 mg 8-07 tablet by ity of tablet 00:00: mouth 2 [place] 00 (two) Medical times Branch daily. traMADOL 2016-05 2019- No 50mg Take 1 Univer s (ULTRAM) 50 1-19 08-07 tablet by it y of mg tablet 00:00: 00:00 mouth [place] 00 :00 every 6 Medical (six) Branch hours as needed for Pain (scale 4-6). sulindac 2015-05 2019- No 200mg Take 1 Unive rs (CLINORIL) 0-20 08-07 tablet by ity of 200 mg 00:00: 00:00 mouth 2 [place] tablet 00 :00 (two) Medical times Branch daily. metFORMIN 2019- No [id number] 500mg Take 1 Tab Univers (GLUCOPHAGE 3-22 08-07 by mouth 2 i ty of ) 500 mg 00:00: 00:00 (two) [place] tablet 00 :00 times Medical daily with Branch meals. Immunizations Ordered Filled Immunization Date Status Comments [facility] e Immunization Name Name Influenza Virus 2019-03-04 Completed Universit y of Vaccine Quad .5 mL 00:00:00 [place] [facility] IM 6+ MO Branch Influenza Virus 2019-03-04 Completed Universit y of Vaccine [place] .5 mL 00:00:00 [place] [facility] IM 6+ MO Branch Influenza Virus 2019-03-04 Completed Universit y of Vaccine [place] .5 mL 00:00:00 [place] [facility] IM 6+ MO Branch Influenza Virus 2019-03-04 Completed Universit y of Vaccine [place] .5 mL 00:00:00 [place] [facility] IM 6+ MO Branch Influenza Virus 2019-03-04 Completed Universit y of Vaccine [place] .5 mL 00:00:00 [place] [facility] IM 6+ MO Branch Td 2011-11-30 Completed University of 00:00:00 [place] [facility] Td 2011-11-30 Completed University of 00:00:00 [place] [facility] Td 2011-11-30 Completed University of 00:00:00 [place] [facility] Td 2011-11-30 Completed University of 00:00:00 [place] [facility] Td 2011-11-30 Completed University of 00:00:00 [facility] [place] [facility] Branch Td 2011-11-30 Completed University of 00:00:00 [facility] Vital Signs Vital Name Observation Time Observation Value Comments Source Systolic blood 2020-04-09 08:00:00 133 mm[Hg] Univer sity of pressure [facility] Diastolic blood 2020-04-09 08:00:00 90 mm[Hg] Unive rsity of [facility] Heart rate 2020-04-09 08:00:00 87 /min [facility] Respiratory rate 2020-04-09 08:00:00 14 /min [facility] Oxygen saturation in 2020-04-09 08:00:00 99 /min [facility] Arterial blood by [facility] Pulse oximetry [place] Body temperature 2020-04-09 07:19:00 37.28 Neena [facility] Body height 2020-04-09 07:19:00 160 cm [facility] Body weight 2020-04-09 07:19:00 101.152 kg [facility] BMI 2020-04-09 07:19:00 39.50 kg/m2 Universi ty [facility] Systolic blood 2020-04-09 08:00:00 133 mm[Hg] Univer sity of pressure [facility] Diastolic blood 2020-04-09 08:00:00 90 mm[Hg] Unive rsity of pressure [facility] Heart rate 2020-04-09 08:00:00 87 /min Universi ty [facility] Respiratory rate 2020-04-09 08:00:00 14 /min Univ ersity of [place] [facility] Oxygen saturation in 2020-04-09 08:00:00 99 /min University of Arterial blood by [place] [facility] [place] Pulse oximetry Branch Body temperature 2020-04-09 07:19:00 37.28 Neena Univ ersity of [place] [facility] Body height 2020-04-09 07:19:00 160 cm Universi ty of [place] [facility] Body weight 2020-04-09 07:19:00 101.152 kg Universi ty of [place] [facility] BMI 2020-04-09 07:19:00 39.50 kg/m2 Universi ty of [place] [facility] Respiratory rate 2019-07-11 22:47:00 16 /min Univ ersity of [place] [facility] Oxygen saturation in 2019-07-11 22:47:00 99 /min University of Arterial blood by [facility] [place] [facility] marichuy Pulse oximetry Branch Systolic blood 2019-07-11 20:27:00 151 mm[Hg] Univer sity of pressure [place] [facility] Diastolic blood 2019-07-11 20:27:00 90 mm[Hg] Unive rsity of pressure [place] [facility] Heart rate 2019-07-11 20:27:00 89 /min Universi ty of [place] [facility] Body temperature 2019-07-11 20:27:00 37.11 Neena Univ ersity of [place] [facility] Body height 2019-07-11 20:27:00 160 cm Universi ty of [place] [facility] Body weight 2019-07-11 20:27:00 104.327 kg Universi ty of [place] [facility] BMI 2019-07-11 20:27:00 40.74 kg/m2 Universi ty of [place] [facility] Respiratory rate 2019-07-11 22:47:00 16 /min Univ ersity of [place] [facility] Oxygen saturation in 2019-07-11 22:47:00 99 /min University of Arterial blood by [facility] [place] [facility] marichuy Pulse oximetry Branch Systolic blood 2019-07-11 20:27:00 151 mm[Hg] Univer sity of pressure [place] [facility] Diastolic blood 2019-07-11 20:27:00 90 mm[Hg] Unive rsity of pressure [place] [facility] Heart rate 2019-07-11 20:27:00 89 /min Universi ty of [place] [facility] Body temperature 2019-07-11 20:27:00 37.11 Neena Univ ersity of [place] [facility] Body height 2019-07-11 20:27:00 160 cm Universi ty of [place] [facility] Body weight 2019-07-11 20:27:00 104.327 kg Universi ty of [place] [facility] BMI 2019-07-11 20:27:00 40.74 kg/m2 Universi ty of [place] [facility] Systolic blood 2018-12-06 02:00:00 150 mm[Hg] Univer sity of pressure [place] [facility] Diastolic blood 2018-12-06 02:00:00 98 mm[Hg] Unive rsity of pressure [place] [facility] Heart rate 2018-12-06 02:00:00 74 /min Universi ty of [place] [facility] Respiratory rate 2018-12-06 02:00:00 10 /min Univ ersity of [place] [facility] Oxygen saturation in 2018-12-06 02:00:00 100 /min University of Arterial blood by [facility] Pulse oximetry Branch Body temperature 2018-12-06 00:31:00 36.56 Neena Univ ersity of [place] [facility] Body height 2018-12-06 00:31:00 157.5 cm Universi ty of [place] [facility] Body weight 2018-12-06 00:31:00 103.42 kg Universi ty of [place] [facility] BMI 2018-12-06 00:31:00 41.70 kg/m2 Universi ty of [place] [facility] Systolic blood 2018-12-06 02:00:00 150 mm[Hg] Univer sity of pressure [place] [facility] Diastolic blood 2018-12-06 02:00:00 98 mm[Hg] Unive rsity of pressure [place] [facility] Heart rate 2018-12-06 02:00:00 74 /min Universi ty of [place] [facility] Respiratory rate 2018-12-06 02:00:00 10 /min Univ ersity of [place] [facility] Oxygen saturation in 2018-12-06 02:00:00 100 /min University of Arterial blood by [facility] [place] [facility] marichuy Pulse oximetry Branch Body temperature 2018-12-06 00:31:[address] [facility] ersity of [place] [facility] Body height 2018-12-06 00:31:00 157.5 cm Universi ty of [place] [facility] Body weight 2018-12-06 00:31:00 103.42 kg Universi ty of [place] [facility] BMI 2018-12-06 00:31:00 41.70 kg/m2 Universi ty of [place] [facility] Procedures Procedure Date / Time Performing Clinician Source Performed RAPID STREP SCREEN FOR 2020-04-09 07:39:00 Shantel Pham [facility] GROUP A Medical Branch NOTICE OF PRIVACY 2020-04-09 07:12:32 [facility]assigned, No [facility] Branch CONSENT/REFUSAL FOR 2020-04-09 07:12:07 Doctor Unassigned, No Un iversity of [place] DIAGNOSIS AND TREATMENT Name [facility] XR CHEST 1 VW 2019-07-11 23:18:39 Bre Avendaño [facility] RAPID STREP SCREEN FOR 2019-07-11 20:33:00 James Dunaway [facility] ADC,CLC OR LCC ONLY - 2019-07-11 20:33:00 James Dunaway [facility] INFLUENZA A & B DIRECT Medical B ranch ANTIGEN NOTICE OF PRIVACY 2019-07-11 20:11:46 [facility], No [facility] CONSENT/REFUSAL FOR 2019-07-11 20:11:30 Doctor Unassigned, No Un iversity [facility] DIAGNOSIS AND TREATMENT Name [facility] COMP. METABOLIC PANEL 2018-12-06 01:27:00 Jonathon Perales [facility] ([id number]) [facility] CBC WITH DIFFERENTIAL 2018-12-06 01:27:00 Jonathon Perales [facility] URINALYSIS 2018-12-06 01:25:00 Jonathon Perales [facility] ADC / LCC - DRUG SCREEN 2018-12-06 01:25:00 [facility] 2018-12-06 00:37:00 Jonathon Perales [facility] Encounters Start End Encounter Admission Attending Care Care Encounter Source Date/Time Date/Time Type Type Clinicians Facility Department ID 2021-02-27 Emergency [facility] [id number] Univers 10:22:05 [facility] 2020-07-20 2020-07-20 Patient Mariano [facility] [id number] Univers 00:00:00 00:00:00 Outreach [place] PRIMARY [id number] i ty of [facility] 4.2.7.2.686 [place] [facility] [id number] [facility] [address] [place] 2020-04-09 2020-04-09 Emergency [facility] [id number] 01:24:00 02:46:00 Shantel Hanley [place] 350.1.13.10 [place] 4.2.7.2.686 [place] [id number] 2020-04-09 2020-04-09 [facility] [id number] [facility] 01:24:00 02:46:00 Shantel Hanley [place] 350.1.13.10 i ty of [place] 4.2.7.2.686 [facility] s [place] [id number] [address] 2020-04-09 2020-04-09 Telephone Tania Linda Mdaay MEL [id number] 00:00:00 00:00:[id number] [facility] 4.2.7.2.686 [id number] [facility] 2020-04-09 2020-04-09 Telephone Linda Marin MEL [id number] [facility] 00:00:00 00:00:[id number] [facility] 4.2.7.2.686 [place] [id number] [address] 2019-07-11 2019-07-11 Emergency [facility] [id number] [facility] 17:09:23 20:25:00 Bre iQu [place] 350.1.13.10 [place] 4.2.7.2.686 [place] [id number] [facility] 2019-07-11 2019-07-11 Emergency X [facility] ERT [id number] Univers 17:09:23 20:25:00 BRE ity of [facility] 2019-07-11 2019-07-11 Emergency [facility] [id number] [facility] 17:09:23 20:25:00 Bre Qiu [place] 350.1.13.10 ity of [place] 4.2.7.2.686 [place] [id number] [address] 2019-07-11 2019-07-11 Orders Doctor MEL [id number] 00:00:00 00:00:00 Only Unassigned, RYAN 350.1.13.[address] [place] [facility] 4.2.7.2.686 [id number] 2019-07-11 2019-07-11 Orders Doctor MLE [id number] Univers 00:00:00 00:00:00 Only Unassigned, RYAN 350.1.13.[address] [place] [facility] 4.2.7.2.686 [facility] [id number] [address] 2019-06-03 2019-06-03 Outpatient MARIELA KERR [facility] [id number] Univers 16:00:00 16:00:00 [facility] 2018-12-05 2018-12-05 Emergency [facility] [id number] 19:29:22 21:59:00 Jonathon Reinoso 350.1.13.[address] [place] [address] [place] [address] [id number] [facility] 2018-12-05 2018-12-05 [facility] [id number] [facility] 19:29:22 21:59:00 Jonathon Reinoso 350.1.13.10 ity [facility] 4.2.7.[address] [place] [id number] Results Test Description Test Time Test Comments Results Result Comments Source RAPID STREP SCREEN FOR GROUP A 2020-04-09 08:06:00 Test Item Value Reference Range Interpretation Comme nts Streptococcus pyogenes (group A) antigen (test code = 66761- 2) Negative Negative Lab Interpretation (test code = 63745-5) Normal [facility] [id number] 23:30:00Findings and Impression: ?Clear lungs. No pleural effusion or pneumothorax.Heart size is normal. No acute osseous abnormality. PORTABLE CHEST RADIOGRAPH History: cough Comparison: None available. TECHNIQUE: AP view of the chest. [facility], Radiant Results Inft - 07/11/2019 6:31 PM CDTPORTABLE CHESTRADIOGRAPHHistory: cough Comparison: None available.TECHNIQUE: AP view of the chest.IMPRESSIONFindings and Impression: Clear lungs. No pleural effusion or pneumothorax.Heart size is normal. No acute osseous abnormality.[facility] ONLY - INFLUENZA A & B DIRECT ANTIGEN 2019-07-11 21:02:00 Test Item Value Reference Range Interpretation Comments Influenza A (test code = 14763-0) Negative Negative Influenza B (test code = 08456-3) Negative Negative Lab Interpretation (test code = Normal 12605-1) [facility] STREP SCREEN FOR GROUP [id number] 20:56:00 Test Item Value Reference Range Interpretation Comments Streptococcus pyogenes (group A) Negative Negative antigen (test code = 49310-9) Lab Interpretation (test code = Normal 61040-7) [facility]2019-[facility]-08 02:06:00 Test Item Value Reference Range Interpretation Comments APPEARANCE (test code = Clear Clear 0360296826) COLOR (test code = Yellow Yellow 0381322753) PH (test code = 4.8-8.0 5434571294) SP GRAVITY (test code = 1.003-1.030 5337235109) GLU U QUAL (test code = Negative Negative 9392426498) BLOOD (test code = Negative Negative 6464154380) KETONES (test code = 40 mg/dL Negative A 0802169489) PROTEIN (test code = Trace Negative A 2887-8) UROBILIN (test code = 0.2 mg/dL See_Comment [Auto mated message] [id number]) The system [employer] generated this result transmit moses reference range : 0-1.0 mg/dL. Th e reference range was not used to interpret this result as normal/abnormal . BILIRUBIN (test code = Negative Negative 2933807369) NITRITE (test code = Negative Negative 6490476785) LEUK JOSE (test code = Negative Negative 2275895452) RBC/HPF (test code = See_Comment [Autom ated message] 0951426382) The system [employer] generated this result transmit moses reference range : 0 - 3 HPF. The refe rence range was not u sed to interpret th is result as normal/abnormal . WBC/HPF (test code = See_Comment [Autom ated message] 5933347308) The system [employer] generated this result transmit moses reference range : 0 - 5 HPF. The refe rence range was not u sed to interpret th is result as normal/abnormal . BACTERIA (test code = Moderate Negative A 8686055774) AMORPHOUS (test code = >10 mg/dL HPF 6541712286) SQ EPITH (test code = HPF 4640419744) Lab Interpretation (test Abnormal code = 81760-9) [facility] / [facility] - DRUG SCREEN [id number] 02:03:00 Test Item Value Reference Range Interpretation Comments BENZO U (test code = Negative Negative [id number]) MARNI U (test code = Negative Negative 8984289146) AMPHET (test code = Negative Negative 8087491382) THC (test code = Presumptive Negative A Confirmatio n of [id number]) Positive Presumptive Positive THC result requires physician order . METHADONE (test code Negative Negative = 6340802328) Meth U (test code = Negative Negative 7565080933) OPIATES (test code = Presumptive Negative A 0525283821) Positive Cocaine Metabolite Presumptive Negative A (test code = Positive 7413795742) PROPOXY (test code = Negative Negative 7768335720) Tric U (test code = Negative Negative 4073050842) PCP (test code = Negative Negative 5544212376) OXYCOD (test code = Negative Negative 3037724427) MILTON (test code = Urine Drug Cutoff MILTON) RangesBenzodiazep juanjose: ? ? 150 ng/mLBarbiturates : ?200 ng/mLAmphetamine: ? 500 ng/mLCannabinoids : ?50?ng/mLMethadon e: ? 200 ng/mLMethamphetam ine:? 500 ng/mL Opiates: ? 100 ng/mL or 2000 ng/mLCocaine: ? 150 ng/mLPropoxyphene :?300 ng/mLTricyclics:? 300 ng/mLOxycodone:? 100 ng/mLPCP:? 25?ng/mLThe results are to be used only for medical (i.e., treatment) purposes. Unconfirmed screening results must not be used for non-medical purposes (e.g., employment testing, legal testing). Lab Interpretation Abnormal (test code = 71650-7) [facility]. METABOLIC PANEL (68006)2018-12-06 01:54:00 Test Item Value Reference Range Interpretation Comments NA (test code = 141 mmol/L 135-145 7519938939) K (test code = 3.5 mmol/L 3.5-5 2046552480) CL (test code = 108 mmol/L 98-108 6728426523) CO2 TOTAL (test code = 26 mmol/L 23-31 4727698804) AGAP (test code = 2-16 5108581442) BUN (test code = 11 mg/dL 7-23 9126262621) GLUCOSE (test code = 117 mg/dL 70-110 H 7119744610) CREATININE (test code = 0.70 mg/dL 0.5-1.04 4111578019) TOTAL BILI (test code = 0.2 mg/dL 0.1-1.1 4684514778) CALCIUM (test code = 8.3 mg/dL 8.6-10.6 L 2435122037) T PROTEIN (test code = 7.2 g/dL 6.3-8.2 9807865912) ALBUMIN (test code = 3.8 g/dL 3.5-5 1318097551) ALK PHOS (test code = 86 U/L 34-122 5413988982) ALT(SGPT) (test code = 19 U/L 9-51 8998260355) AST(SGOT) (test code = 16 U/L 13-40 7880665131) eGFR Calculation mL/min/1.73m2 (Non-) (test code = 0149696018) eGFR Calculation mL/min/1.73m2 () (test code = 5549696712) MILTON (test code = MILTON) Association of Glomerular Filtration Rate (GFR) and Staging of Kidney Disease*+ + + +| GFR (mL/min/1.73 m2)?| With Kidney Damage?|?Without Kidney Damage+ --------+ --------+ +|?>90?|?S tage one?|? Normal?+ ---------+ ---------+ +|?60-89? |?Stage two?|? Decreased GFR? + --+ --+ ------+|?30-59?|?Stage three?|? Stage three? + --+ --+ ------+|?15-29?|?Stage four?? |? Stage four?+ -------+ -------+ +|?<15 (or dialysis)?|?Stage five? |? Stage five?+ -------+ -------+ +*Each stage assumes the associated GFR level has been in effect for at least three months.?Stages 1 to 5, with or without kidney disease, indicate chronic kidney disease.Notes: Determination of stages one and two (with eGFR >59mL/min/1.73 m2) requires estimation of kidney damage for at least three months as defined by structural or functional abnormalities of the kidney, manifested by either:Pathological abnormalities or Markers of kidney damage (including abnormalities in the composition of the blood or urine or abnormalities in imaging tests). Lab Interpretation Abnormal (test code = 52426-7) [facility] WITH [id number] 01:42:00 Test Item Value Reference Range Interpretation Comments WBC (test code = See_Comment [Automated 3563-2) message] The sy stem which generated this result transmitted reference range : 4.30 - 11.10 10*3/?L. The reference range was not used to interpret this result as normal/abnormal . RBC (test code = See_Comment [Automated 319-8) message] The sy stem which generated this result transmitted reference range : 3.93 - 5.25 10*6/?L. The reference range was not used to interpret this result as normal/abnormal . HGB (test code = 10.7 g/dL 11.6-15 L 718-7) HCT (test code = 34.1 % 35.7-45.2 L 4544-3) MCV (test code = 80.4 fL 80.6-95.5 L 787-2) MCH (test code = 25.2 pg 25.9-32.8 L 785-6) MCHC (test code = 31.4 g/dL 31.6-35.1 L 786-4) RDW-SD (test code = 46.9 fL 39-49.9 95263-3) RDW-CV (test code = 16.2 % 12-15.5 H 788-0) PLT (test code = See_Comment [Automated 907-3) message] The sy stem which generated this result transmitted reference range : 166 - 358 10*3/ ?L. The reference r giovanny was not used to interpret this result as normal/abnormal . MPV (test code = 9.8 fL 9.5-12.9 54646-5) NRBC/100 WBC (test See_Comment [Automat ed code = 3419654315) message] The system which generated this result transmitted reference range : 0.0 - 10.0 /100 WBCs. The refer ence range was not u sed to interpret th is result as normal/abnormal . NRBC x10^3 (test code <0.01 See_Comment [Auto mated = 1763204067) message] The s ystem which generated this result transmitted reference range : 10*3/?L. The reference range was not used to interpret this result as normal/abnormal . GRAN MAT (NEUT) % 66.3 % (test code = 770-8) IMM GRAN % (test code 0.30 % = 8200714503) LYMPH % (test code = 23.5 % 736-9) MONO % (test code = 7.6 % 5905-5) EOS % (test code = 1.6 % 713-8) BASO % (test code = 0.7 % 706-2) GRAN MAT x10^3(ANC) 4.95 10*3/uL 1.88-7.09 (test code = 6440598105) IMM GRAN x10^3 (test <0.03 0-0.06 code = 9945271449) LYMPH x10^3 (test code 1.75 10*3/uL 1.32-3.29 = 731-0) MONO x10^3 (test code 0.57 10*3/uL 0.33-0.92 = 742-7) EOS x10^3 (test code = 0.12 10*3/uL 0.03-0.39 711-2) BASO x10^3 (test code 0.05 10*3/uL 0.01-0.07 = 704-7) Lab Interpretation Abnormal (test code = 67580-1) [id number] Test Item Value Reference Range Interpretation Comments POCT PREG (test code = 1605) negative On board controls acceptable with positive C Line (test code = 3574) POCT PREG LOT # (test code = 3575) [id number] POCT PREG TEST DATE (test 04/30/2020 code = 3576) Lab Interpretation (test code = Normal 25268-3) [facility]"
== END 2021-04-26 18:05 | disposition left against medical advice (07) ==
LOC: ER 16:18
DX: Z02.9 Encounter for administrative examinations, unspecified (principal)